=== PATIENT | female | born 1990 | race Caucasian/White ===

== ENCOUNTER 2019-05-15 18:55 | Emergency (ER) | payer OTHER, SELFPAY ==
[2019-05-15 18:58] VITALS: BP 94/67; PULSE 82; RESP 20; TEMP 36.9; O2SAT 99; BMI 24.7
--- NOTE | 2019-05-15 19:05 | DI.US.S_ITS ---
PROCEDURE: US PERIPH VENOUS LOW EXTREM RT INDICATIONS: leg pain TECHNIQUE: Real-time imaging, as well as color and pulse Doppler interrogation, were performed of the lower extremity deep veins from the inguinal ligament to the popliteal fossa. COMPARISON: None. FINDINGS: The common femoral, femoral and popliteal veins are normally compressible, and free of intraluminal thrombus. Color and pulse Doppler demonstrate normal phasic intraluminal flow. There is normal augmentation response to distal compression maneuver. IMPRESSION: Negative for deep venous thrombosis of the right lower extremity. Dictated by: James Trinh M.D. on 05/15/2019 at 19:49 Approved by: James Trinh M.D. on 05/15/2019 at 19:50
[2019-05-15 19:37] LABS: Add Manual Diff / Slide Review NO; Basophils Absolute Auto 0 /uL (0-100); Basophils Percent Auto 0.5 % (0-2); Eosinophils Absolute Auto 100 /uL (0-450); Eosinophils Percent Auto 1.7 % (2-4); Hematocrit 40.4 % (36-46); Hemoglobin 13.5 g/dL (12.0-16.0); Lymphocytes Absolute Auto 3500 /uL (1100-4500); Lymphocytes Percent Auto 47.5 % (25-40); Mean Corpuscular HGB Conc 33.4 % (30-36); Mean Corpuscular Hemoglobin 29.2 PG (26-34); Mean Corpuscular Volume 87.5 fL (80-100); Monocytes Absolute Auto 600 /uL (0-900); Monocytes Percent Auto 8.6 % (3-14); Neutrophils Absolute Auto 3000 /uL (1500-7000); Neutrophils Percent Auto 41.7 % (50-75); Platelet Count 257 X10^3/uL (150-400); Red Blood Cell Count 4.62 X10^6/uL (4.0-5.2); Red Cell Distribution Width 13.7 % (11.6-14.8); White Blood Cell Count 7.3 X10^3/uL (4.5-11.0)
[2019-05-15 19:39] LABS: Prothrombin Time 11.2 SECONDS (10.1-12.7)
[2019-05-15 19:47] LABS: Alanine Aminotransferase 30 IU/L (9-52); Albumin 4.4 g/dL (3.5-5.0); Albumin Globulin Ratio 1.6 (1.0-2.8); Alkaline Phosphatase 65 U/L (38-126); Aspartate Aminotransferase 23 IU/L (14-36); BUN Creatinine Ratio 22.5 (6-22); Bilirubin Total 0.3 mg/dL (0.2-1.3); Blood Urea Nitrogen 18 mg/dL (7-17); Carbon Dioxide 25 mmol/L (22-32); Chloride 105 mmol/L (98-107); Estimated Glomerular Filt Rate > 60.0 mL/min (>60); Globulin 2.8 g/dL (1.7-4.1); Glucose 95 mg/dL (70-100); HEMOLYSIS 16 (0-50); Potassium 3.7 mmol/L (3.4-5.1); Sodium 140 mmol/L (137-145); Total Protein 7.2 g/dL (6.3-8.2)
--- NOTE | 2019-05-15 20:59 | ED_ITS ---
HPI - Extremity Problem General Chief complaint: Extremity Problem,Nontraumatic Stated complaint: pain from groin down right leg, had recent clot Time Seen by Provider: 05/15/19 20:58 Source: patient Mode of arrival: ambulatory Limitations: no limitations History of Present Illness HPI Narrative: Patient is a 28-year-old female who within the past couple weeks has stop taking Lovenox. Patient was on Lovenox because she developed a right lower extremity DVT while she was . She has factor 5 Leiden. Patient states she was taken off the Lovenox by her provider. States over the past couple days she has noticed pain in the upper portion of her right lower extremity. No fevers. She was concerned about a new DVT. Related Data Allergies Allergy/AdvReac Type Severity Reaction Status Date / Time No Known Drug Allergies Allergy Verified 05/15/19 19:05 Review of Systems Constitutional Denies fever(s) and Denies headache(s) ENT Ears, Nose, Mouth, and Throat: Denies headache(s) Cardiovascular Denies chest pain and Denies dyspnea Respiratory Denies dyspnea Gastrointestinal Gastrointestinal: Denies abdominal pain, Denies nausea and Denies vomiting Genitourinary Denies dysuria Musculoskeletal Denies myalgias, Reports arthralgias (Right hip) and Denies joint swelling Integumentary/Breasts Denies new lesions and Denies rash Neurologic Denies headache(s) Hematologic/Lymphatic Comments: Factor 5 Leiden [facility] Medical History DVT (deep vein thrombosis) in (Acute) Factor 5 Leiden mutation, heterozygous (Acute) Social History Smoking Status: Current every day smoker Social History Smoking Status: Current every day smoker Exam Initial Vital Signs Initial Vital Signs: Vital Signs Temperature 98.5 F 05/15/19 18:58 Pulse Rate 82 05/15/19 18:58 Respiratory Rate 20 05/15/19 18:58 Blood Pressure 94/67 05/15/19 18:58 Pulse Oximetry 99 05/15/19 18:58 Const General: cooperative, comfortable, well developed and well groomed Orientation: alert, awake and oriented x3 Resp Effort & Inspection: normal respiratory effort Cardio Rate: regular rate Skin Lesions: no lesions Rashes: no rashes Neuro General: alert, awake and oriented x3 Cognition: normal cognition Speech: speech normal Extrem Other: Does have tenderness to palpation over the right groin area. This is reproduced with flexion extension of the hip in internal and external rotation of the hip. Psych Appearance: grossly normal and well kempt Course Orders Ordered: ED Orders 05/15/19 19:05 US periph venous low extrem rt Stat 05/15/19 19:23 Complete Blood Count AUTO DIFF Stat Comprehensive Metabolic Panel Stat PT [Prothrombin Time INR] Stat Vital Signs - 8 hr 05/15/19 21:11 Pulse Rate 75 Respiratory Rate 16 MDM - Extremity (Nontraumatic) Lab Data Result diagrams: 05/15/19 19:23 05/15/19 19:23 Lab Results 05/15/19 05/15/19 05/15/19 Range/Units 19:23 19:23 19:23 WBC 7.3 (4.5-11.0) X10^3/uL RBC 4.62 (4.0-5.2) X10^6/uL Hgb 13.5 (12.0-16.0) g/dL Hct 40.4 (36-46) % MCV 87.5 (80-100) fL MCH 29.2 (26-34) PG MCHC 33.4 (30-36) % RDW 13.7 (11.6-14.8) % Plt Count 257 (150-400) X10^3/uL Neut % (Auto) 41.7 L (50-75) % Lymph % (Auto) 47.5 H (25-40) % [place] % (Auto) 8.6 (3-14) % Eos % (Auto) 1.7 L (2-4) % Baso % (Auto) 0.5 (0-2) % Neut # (Auto) 3000 (4439-4391) /uL Lymph # (Auto) 3500 (8220-6017) /uL [place] # (Auto) 600 (0-900) /uL Eos # (Auto) 100 (0-450) /uL Baso # (Auto) 0 (0-100) /uL PT 11.2 (10.1-12.7) SECONDS INR 1.0 (0.9-1.3) Sodium 140 (137-145) mmol/L Potassium 3.7 (3.4-5.1) mmol/L Chloride 105 (98-107) mmol/L Carbon Dioxide 25 (22-32) mmol/L BUN 18 H (7-17) mg/dL Creatinine 0.80 (0.52-1.04) mg/dL Estimated GFR > 60.0 (>60) mL/min BUN/Creatinine Ratio 22.5 H (6-22) Glucose 95 (70-100) mg/dL Calcium 10.0 (8.4-10.2) mg/dL Total Bilirubin 0.3 (0.2-1.3) mg/dL AST 23 (14-36) IU/L ALT 30 (9-52) IU/L Alkaline Phosphatase 65 (38-126) U/L Total Protein 7.2 (6.3-8.2) g/dL Albumin 4.4 (3.5-5.0) g/dL Globulin 2.8 (1.7-4.1) g/dL Albumin/Globulin Ratio 1.6 (1.0-2.8) Imaging Data Venous US: Radiologist's impression: [place] [address] Ultrasound Report Signed Patient: yL Blackwood MMR#: [id number] : 1990Acct:[id number] Age/Sex: 28 / FDate of Service: 05/15/19 Loc: ED Accession Number: [id number] Procedure: US periph venous low extrem rt Ordering Provider: Faraz Murray D.O. PROCEDURE: US PERIPH VENOUS LOW EXTREM RT INDICATIONS: leg pain TECHNIQUE: Real-time imaging, as well as color and pulse Doppler interrogation, were performed of the lower extremity deep veins from the inguinal ligament to the popliteal fossa. COMPARISON: None. FINDINGS: The common femoral, femoral and popliteal veins are normally compressible, and free of intraluminal thrombus. Color and pulse Doppler demonstrate normal phasic intraluminal flow. There is normal augmentation response to distal compression maneuver. IMPRESSION: Negative for deep venous thrombosis of the right lower extremity. Dictated by: James Trinh M.D. on 05/15/2019 at 19:49 Approved by: James Trinh M.D. on 05/15/2019 at 19:[address] [facility] Narrative Medical decision making narrative: Patient is neurovascular intact. She has no DVT on the ultrasound today. She does have some tenderness with movement of the right hip however is able to ambulate without any problems. Low suspicion for fracture. Will hold on x-ray for now. Potential muscular issue. We also discuss other soft tissue injuries such as labral issues. Informed her that if her symptoms do not improve she should talk with her primary doctor about the indications for an MRI or other referral for physical therapy. Patient was gi chinedu return precautions and follow-up instructions. She expressed understanding and agreement with plan. Discharge Plan Departure Patient Disposition: Home Clinical Impression: Hip joint pain Qualifiers: Laterality: right Qualified Code(s): M25.551 - Pain in right hip Discharge Date/Time: 05/15/19 21:12 Interventions: ED Discharge Assessment Last Done: 05/15/19 21:11 Instructions: DI for Hip Pain Activity Restrictions/Additional Instructions: Talk with your worsening symptoms primary provider to discuss further workup to include potential referrals to physical therapy or Orthopedics and the indications for potential MRI. There were no blood clots on the ultrasound today. Return to the emergency department for any new or
[2019-05-15 21:11] VITALS: PULSE 75; RESP 16
== END 2019-05-15 21:12 | disposition home or self-care (01) ==
PROVIDERS: Emergency Provider Emergency Medicine
DX: M25.551 Pain in right hip (principal)
CPT/HCPCS: 36415; 80053; 85025; 85610; 93971; 99282; 99284